=== PATIENT | male | born 1980 | race Caucasian/White ===

== ENCOUNTER 2022-07-14 16:55 | Inpatient (IN) | payer OTHER ==
[~2022-07-14] VITALS: Ht 180.3 cm; Wt 80.3 kg
[2022-07-14 19:00] VITALS: BP 120/76
[2022-07-14] MEDS ORDERED: MELATONIN 5 MG TABLET NG PRN (19:45)
[2022-07-14 22:10] LABS: GLUCOMETER DEV NAME(LOC) 2WR.1C; GLUCOSE,POINT OF CARE 74 MG/DL (70-110)
[2022-07-14] MEDS ORDERED: DEXTROSE 50%-WATER 25 GM/50 ML SYRINGE IVP PRN (22:45)
[2022-07-14] MEDS ORDERED: INSULIN REGULAR, HUMAN 100 UNITS/ML SQ PRN (22:45)
[2022-07-14] MEDS: ETHYL ALCOHOL 62% ANTISEPTIC NASAL SANITIZER 0.6 ML AMPUL NASAL SCH (23:30)
[2022-07-15] MEDS: DOCUSATE SODIUM 100 MG/10 ML LIQUID UDCUP NG SCH ×3 (00:14→20:15)
[2022-07-15] MEDS: SENNOSIDES 8.8 MG/5 ML SYRUP UDCUP NG SCH ×2 (00:14→20:15)
[2022-07-15 01:25] LABS: GLUCOMETER DEV NAME(LOC) 2WR.1C; GLUCOSE,POINT OF CARE 87 MG/DL (70-110)
[2022-07-15 07:11] LABS: GLUCOMETER DEV NAME(LOC) 2WR.2B; GLUCOSE,POINT OF CARE 91 MG/DL (70-110)
[2022-07-15 08:05] VITALS: BP 113/75
[2022-07-15] MEDS: ENOXAPARIN SODIUM 40 MG/0.4 ML PF SYRINGE SQ SCH (09:18)
[2022-07-15] MEDS: ETHYL ALCOHOL 62% ANTISEPTIC NASAL SANITIZER 0.6 ML AMPUL NASAL SCH ×2 (09:18→20:18)
[2022-07-15] MEDS: FOLIC ACID 1 MG TABLET NG SCH (09:19)
[2022-07-15] MEDS: MULTIVITAMINS, THERAPEUTIC 15 ML UDCUP NG SCH (09:19)
[2022-07-15] MEDS: THIAMINE 100 MG TABLET NG SCH (09:19)
[2022-07-15 11:22] LABS: BASOPHILS % (AUTO) 1.2 % (0.0-2.0); EOSINOPHILS % (AUTO) 6.3 % (1.0-6.0); HEMATOCRIT 33.7 % (41-53); HEMOGLOBIN 11.6 g/dL (13.5-17.5); LYMPHOCYTES # (AUTO) 1.2 K/uL (1.0-4.8); LYMPHOCYTES % (AUTO) 21.6 % (22.0-44.0); MEAN CORPUSCULAR HEMOGLOBIN 33.9 pg (26.0-34.0); MEAN CORPUSCULAR HGB CONC 34.4 G/dL (31.0-37.0); MEAN CORPUSCULAR VOLUME 99 fL (80-100); MONOCYTES % (AUTO) 17.6 % (2.0-9.0); NEUTROPHILS % (AUTO) 53.3 % (40.0-70.0); PLATELET COUNT (AUTO) 329 K/uL (150-450); RED BLOOD CELL COUNT(AUTO) 3.42 MIL/uL (4.50-5.90); RED CELL DISTRIBUTION WIDTH 12.3 % (11.5-14.5)
[2022-07-15 11:51] LABS: ALANINE AMINOTRANSFERASE 37 U/L (12-78); ALBUMIN 3.5 g/dL (3.4-5.0); ALKALINE PHOSPHATASE 111 U/L (46-116); ANION GAP 10 mmol/L (8-16); ASPARTATE AMINOTRANSFERASE 27 U/L (15-37); BILIRUBIN,TOTAL 0.6 mg/dL (0.1-1.0); CALCIUM, TOTAL 9.8 mg/dL (8.8-10.5); CARBON DIOXIDE 26 mmol/L (22-29); CHLORIDE 99 mmol/L (98-107); CREATININE 0.84 mg/dL (0.60-1.30); GLOMERULAR FILTR. RATE CALC > 60 mL/min (>60); GLUCOSE,RANDOM 97 mg/dL (70-110); POTASSIUM 4.2 mmol/L (3.5-5.1); SODIUM SERUM 135 mmol/L (136-145); TOTAL PROTEIN, SERUM 7.1 g/dL (6.4-8.2)
[2022-07-15 20:00] VITALS: BP 123/75
[2022-07-16 08:25] VITALS: BP 110/64
[2022-07-16] MEDS: DOCUSATE SODIUM 100 MG/10 ML LIQUID UDCUP NG SCH ×2 (09:00→20:19)
[2022-07-16] MEDS: ETHYL ALCOHOL 62% ANTISEPTIC NASAL SANITIZER 0.6 ML AMPUL NASAL SCH ×2 (10:56→21:25)
[2022-07-16] MEDS: THIAMINE 100 MG TABLET NG SCH (10:57)
[2022-07-16] MEDS: ENOXAPARIN SODIUM 40 MG/0.4 ML PF SYRINGE SQ SCH (10:57)
[2022-07-16] MEDS: MULTIVITAMINS, THERAPEUTIC 15 ML UDCUP NG SCH (10:57)
[2022-07-16] MEDS: FOLIC ACID 1 MG TABLET NG SCH (10:58)
[2022-07-16] MEDS: SENNOSIDES 8.8 MG/5 ML SYRUP UDCUP NG SCH (20:20)
[2022-07-16 21:00] VITALS: BP 108/70
[2022-07-17 08:05] VITALS: BP 103/64
[2022-07-17] MEDS: ENOXAPARIN SODIUM 40 MG/0.4 ML PF SYRINGE SQ SCH (08:24)
[2022-07-17] MEDS: ETHYL ALCOHOL 62% ANTISEPTIC NASAL SANITIZER 0.6 ML AMPUL NASAL SCH ×2 (08:27→21:09)
[2022-07-17] MEDS: NYSTATIN 500,000 UNITS/5 ML SUSPENSION UDCUP PO SCH ×5 (08:28→21:09)
[2022-07-17] MEDS: DOCUSATE SODIUM 100 MG/10 ML LIQUID UDCUP NG SCH ×2 (08:29→21:00)
[2022-07-17] MEDS: FOLIC ACID 1 MG TABLET NG SCH (08:30)
[2022-07-17] MEDS: THIAMINE 100 MG TABLET NG SCH (08:30)
[2022-07-17] MEDS: MULTIVITAMINS, THERAPEUTIC 15 ML UDCUP NG SCH (08:31)
[2022-07-17 20:00] VITALS: BP 105/63
[2022-07-17] MEDS: SENNOSIDES 8.8 MG/5 ML SYRUP UDCUP NG SCH (21:00)
[2022-07-18 08:05] VITALS: BP 107/67
[2022-07-18] MEDS: DOCUSATE SODIUM 100 MG/10 ML LIQUID UDCUP NG SCH ×2 (09:00→21:00)
[2022-07-18] MEDS: ETHYL ALCOHOL 62% ANTISEPTIC NASAL SANITIZER 0.6 ML AMPUL NASAL SCH ×2 (09:09→23:16)
[2022-07-18] MEDS: MULTIVITAMINS, THERAPEUTIC 15 ML UDCUP NG SCH (09:10)
[2022-07-18] MEDS: FOLIC ACID 1 MG TABLET NG SCH (09:10)
[2022-07-18] MEDS: THIAMINE 100 MG TABLET NG SCH (09:10)
[2022-07-18] MEDS: ENOXAPARIN SODIUM 40 MG/0.4 ML PF SYRINGE SQ SCH (09:10)
[2022-07-18] MEDS: NYSTATIN 500,000 UNITS/5 ML SUSPENSION UDCUP PO SCH ×4 (09:10→20:50)
[2022-07-18 21:00] VITALS: BP 108/68
[2022-07-18] MEDS: SENNOSIDES 8.8 MG/5 ML SYRUP UDCUP NG SCH (21:00)
[2022-07-19] MEDS: NYSTATIN 500,000 UNITS/5 ML SUSPENSION UDCUP PO SCH ×4 (07:47→20:36)
[2022-07-19] MEDS: ENOXAPARIN SODIUM 40 MG/0.4 ML PF SYRINGE SQ SCH (07:48)
[2022-07-19] MEDS: FOLIC ACID 1 MG TABLET NG SCH (07:49)
[2022-07-19] MEDS: THIAMINE 100 MG TABLET NG SCH (07:49)
[2022-07-19] MEDS: ETHYL ALCOHOL 62% ANTISEPTIC NASAL SANITIZER 0.6 ML AMPUL NASAL SCH ×2 (07:49→20:36)
[2022-07-19] MEDS: MULTIVITAMINS, THERAPEUTIC 15 ML UDCUP NG SCH (07:49)
[2022-07-19] MEDS: DOCUSATE SODIUM 100 MG/10 ML LIQUID UDCUP NG SCH (07:52)
[2022-07-19 08:01] VITALS: BP 113/73
[2022-07-19] MEDS ORDERED: SENNOSIDES 8.8 MG/5 ML SYRUP UDCUP NG PRN (10:45)
[2022-07-19 20:00] VITALS: BP 112/70
[2022-07-19] MEDS ORDERED: SODIUM CHLORIDE 0.9% 100 ML ONE (22:06)
[2022-07-20 08:30] VITALS: BP 114/72
[2022-07-20] MEDS: NYSTATIN 500,000 UNITS/5 ML SUSPENSION UDCUP PO SCH ×4 (09:00→21:16)
[2022-07-20] MEDS: ETHYL ALCOHOL 62% ANTISEPTIC NASAL SANITIZER 0.6 ML AMPUL NASAL SCH ×2 (09:00→21:15)
[2022-07-20] MEDS: 0.9% SODIUM CHLORIDE 10 ML SYRINGE IVP SCH ×2 (09:09→21:16)
[2022-07-20] MEDS ORDERED: SODIUM CHLORIDE 0.9% 1,000 ML ONE (13:04)
[2022-07-20] MEDS ORDERED: CeFAZolin 1 GM/DEXTROSE 50 ML IV ONE ×2 (14:00→14:14)
[2022-07-20] MEDS ORDERED: SODIUM CHLORIDE 0.9% 1,000 ML IV ONE (14:00)
[2022-07-20] MEDS ORDERED: MORPHINE SULFATE 2 MG/ML SYRINGE IVP PRN (15:30)
[2022-07-20] MEDS: MULTIVITAMINS, THERAPEUTIC 15 ML UDCUP NG SCH (16:33)
[2022-07-20] MEDS: THIAMINE 100 MG TABLET NG SCH (16:34)
[2022-07-20] MEDS: FOLIC ACID 1 MG TABLET NG SCH (16:34)
[2022-07-20] MEDS: ACETAMINOPHEN 650 MG/20.3 ML SOLUTION UDCUP NG PRN (17:24)
[2022-07-20 20:19] VITALS: BP 129/79
[2022-07-21] MEDS ORDERED: PROPOFOL 1% 20 ML VIAL IVP ONE (06:16)
[2022-07-21] MEDS: ACETAMINOPHEN 650 MG/20.3 ML SOLUTION UDCUP NG PRN (06:52)
[2022-07-21 08:00] VITALS: BP 121/76
[2022-07-21] MEDS: 0.9% SODIUM CHLORIDE 10 ML SYRINGE IVP SCH ×2 (08:20→20:11)
[2022-07-21] MEDS: FOLIC ACID 1 MG TABLET NG SCH (08:20)
[2022-07-21] MEDS: ETHYL ALCOHOL 62% ANTISEPTIC NASAL SANITIZER 0.6 ML AMPUL NASAL SCH ×2 (08:20→20:12)
[2022-07-21] MEDS: THIAMINE 100 MG TABLET NG SCH (08:20)
[2022-07-21] MEDS: NYSTATIN 500,000 UNITS/5 ML SUSPENSION UDCUP PO SCH ×4 (08:20→20:11)
[2022-07-21] MEDS: MULTIVITAMINS, THERAPEUTIC 15 ML UDCUP NG SCH (08:20)
[2022-07-21 21:00] VITALS: BP 128/72
[2022-07-22] MEDS ORDERED: FOLI0.4T6 PEG (05:54)
[2022-07-22] MEDS ORDERED: THIA100T80 PEG (05:54)
[2022-07-22] MEDS ORDERED: MULT9LIQ9 PEG (05:54)
[2022-07-22] MEDS: NYSTATIN 500,000 UNITS/5 ML SUSPENSION UDCUP PO SCH ×4 (07:54→21:41)
[2022-07-22] MEDS: ETHYL ALCOHOL 62% ANTISEPTIC NASAL SANITIZER 0.6 ML AMPUL NASAL SCH ×2 (07:54→21:41)
[2022-07-22] MEDS: FOLIC ACID 1 MG TABLET NG SCH (07:54)
[2022-07-22] MEDS: MULTIVITAMINS, THERAPEUTIC 15 ML UDCUP NG SCH (07:54)
[2022-07-22] MEDS: THIAMINE 100 MG TABLET NG SCH (07:54)
[2022-07-22] MEDS: 0.9% SODIUM CHLORIDE 10 ML SYRINGE IVP SCH (08:05)
[2022-07-22 08:10] VITALS: BP 121/80
[2022-07-22 20:01] VITALS: BP 121/85
[2022-07-23] MEDS: ETHYL ALCOHOL 62% ANTISEPTIC NASAL SANITIZER 0.6 ML AMPUL NASAL SCH ×2 (07:25→21:22)
[2022-07-23] MEDS: MULTIVITAMINS, THERAPEUTIC 15 ML UDCUP NG SCH (07:26)
[2022-07-23] MEDS: FOLIC ACID 1 MG TABLET NG SCH (07:26)
[2022-07-23] MEDS: THIAMINE 100 MG TABLET NG SCH (07:27)
[2022-07-23] MEDS: NYSTATIN 500,000 UNITS/5 ML SUSPENSION UDCUP PO SCH ×4 (07:27→21:22)
[2022-07-23 09:01] VITALS: BP 121/77
[2022-07-23 20:00] VITALS: BP 124/82
[2022-07-24 08:15] VITALS: BP 119/73
[2022-07-24 08:18] LABS: ANION GAP 5 mmol/L (8-16); CALCIUM, TOTAL 8.9 mg/dL (8.8-10.5); CARBON DIOXIDE 28 mmol/L (22-29); CHLORIDE 102 mmol/L (98-107); CREATININE 0.79 mg/dL (0.60-1.30); GLOMERULAR FILTR. RATE CALC > 60 mL/min (>60); GLUCOSE,RANDOM 112 mg/dL (70-110); POTASSIUM 4.3 mmol/L (3.5-5.1); SODIUM SERUM 135 mmol/L (136-145)
[2022-07-24] MEDS: MULTIVITAMINS, THERAPEUTIC 15 ML UDCUP NG SCH (08:21)
[2022-07-24] MEDS: THIAMINE 100 MG TABLET NG SCH (08:21)
[2022-07-24] MEDS: ETHYL ALCOHOL 62% ANTISEPTIC NASAL SANITIZER 0.6 ML AMPUL NASAL SCH ×2 (08:21→20:21)
[2022-07-24] MEDS: FOLIC ACID 1 MG TABLET NG SCH (08:21)
[2022-07-24 20:24] VITALS: BP 120/79
[2022-07-25] MEDS: FOLIC ACID 1 MG TABLET NG SCH (08:03)
[2022-07-25] MEDS: ETHYL ALCOHOL 62% ANTISEPTIC NASAL SANITIZER 0.6 ML AMPUL NASAL SCH (08:03)
[2022-07-25] MEDS: THIAMINE 100 MG TABLET NG SCH (08:03)
[2022-07-25] MEDS: MULTIVITAMINS, THERAPEUTIC 15 ML UDCUP NG SCH (08:03)
[2022-07-25 08:10] VITALS: BP 114/73
[2022-07-25] MEDS ORDERED: FOLI-130 GT (09:38)
[2022-07-25] MEDS ORDERED: Multivitamins/Therapeutic GT (09:38)
[2022-07-25] MEDS ORDERED: THIA100T80 GT (09:38)
== END 2022-07-25 11:10 | disposition home or self-care (01) | DRG 91 ==
LOC: 2WR 18:50
PROVIDERS: ADMIT Physical Medicine & Rehabilitation; ATTEND Physical Medicine & Rehabilitation
PROC: 0DH63UZ Insertion of Feeding Device into Stomach, Percutaneous Approach (ICD-10-PCS; principal; 2022-07-20 15:00)
DX: G72.81 Critical illness myopathy (principal); G82.50 Quadriplegia, unspecified; J96.01 Acute respiratory failure with hypoxia; J18.9 Pneumonia, unspecified organism; F10.231 Alcohol dependence with withdrawal delirium; I51.81 Takotsubo syndrome; E87.1 Hypo-osmolality and hyponatremia; R13.10 Dysphagia, unspecified; I50.9 Heart failure, unspecified; G31.84 Mild cognitive impairment of uncertain or unknown etiology; J38.00 Paralysis of vocal cords and larynx, unspecified; R56.9 Unspecified convulsions; D64.9 Anemia, unspecified; R26.9 Unspecified abnormalities of gait and mobility; Z83.3 Family history of diabetes mellitus; Z90.49 Acquired absence of other specified parts of digestive tract; Z82.3 Family history of stroke
CPT/HCPCS: 74018; 80048; 80053; 82962; 85025; 87081; 92507; 92523; 92526; 92610; 97110; 97112; 97116; 97162; 97166; 97530; 97535; 99366; J0690; J1650; J2704; J7030; J7050; Q9967; 36415-L1; 36415-TC